=== PATIENT | female | born 1975 | race Native Hawaiian/Other Pacific Islander ===

== ENCOUNTER 2018-02-18 14:37 | Emergency (ER) | payer OTHER ==
[~2018-02-18] VITALS: Ht 149.9 cm; Wt 50.0 kg
[2018-02-18] MEDS ORDERED: KETOROLAC TROMETHAMINE 10 MG TABLET PO ONE (17:45)
[2018-02-18 18:16] VITALS: BP 114/71
== END 2018-02-18 18:18 | disposition home or self-care (01) ==
LOC: EMS 14:38
DX: M75.22 Bicipital tendinitis, left shoulder (principal); J45.909 Unspecified asthma, uncomplicated; F41.9 Anxiety disorder, unspecified
CPT/HCPCS: 99282